=== PATIENT | female | born 1955 | race African-American/Black ===

== ENCOUNTER 2016-06-12 17:39 | Emergency (ER) | payer OTHER ==
[2016-06-12 17:46] VITALS: BP 153/93
--- NOTE | 2016-06-12 18:38 | EKG Report ---
Test Performed on : 06/12/2016 5:48:48 PM Test Reason : CHEST DISCOMFORT MOVEMENT COUGH HX Blood Pressure : / mmHG Vent. Rate : 095 BPM Atrial Rate : 095 BPM P-R Int : 138 ms QRS Dur : 082 ms QT Int : 348 ms P-R-T Axes : 050 -04 046 degrees QTc Int : 437 ms Normal sinus rhythm. Normal ECG When compared with ECG of 19-JAN-2013 03:49, No significant change was found Unconfirmed Result
--- NOTE | 2016-06-12 19:03 | PROVIDER DOCUMENTATION ---
HPI-General Adult - General Source: patient - History of Present Illness -Gen Adult Nature of Presenting Problems: 60 year old F presents to the ED with a cc of cough with production of green/ yellow/brown colored mucous, congestion, and sore throat with an onset of x1-2 weeks ago. PT states that she has been taking OTC medications with no relief. Pt states that over the past few days she has had body aches and a headache. Location of Pain/Injury: reports: generalized Pain Radiation: reports: no radiation Quality of Pain: reports: aching Severity: reports: mild Onset/Duration: reports: other (2 weeks) Timing: reports: still present Context/Activities at Onset: reports: none Associated Symptoms: reports: cough, EENT symptoms, headaches, muscle aches, sinus congestion/drainage Similar Symptoms Previously?: No Recently seen or treated by another doctor?: No <Darline Martin - Last Filed: 06/12/16 19:05> <Tha Hammond - Last Filed: 06/12/16 19:12> - General Chief Complaint: General Adult Stated Complaint: CHEST PAIN Time Seen by Provider: 06/12/16 18:57 Allergies/Adverse Reactions: Patient Allergies Allergy/AdvReac Type Severity Reaction Status Date / Time ramipril [From Altace] Allergy Severe WELPS Verified 08/05/15 18:03 morphine AdvReac HIVES Verified 06/12/16 17:47 Home Medications: Home Medication List Medication Instructions Recorded Confirmed Last Taken Type ATORVAstatin [Lipitor] 20 mg PO DAILY 06/14/15 07/28/15 07/28/15 History Amlodipine [Norvasc] 10 mg PO DAILY 06/14/15 07/28/15 07/28/15 History Aspirin 81 mg PO DAILY 06/14/15 07/28/15 07/28/15 History Duloxetine [Cymbalta] 60 mg PO DAILY 06/14/15 07/28/15 07/28/15 History Gabapentin 600 mg PO TID 06/14/15 07/28/15 07/28/15 History Lorazepam [Ativan] 0.5 mg PO BID PRN PRN 06/14/15 07/28/15 07/27/15 History Losartan [Cozaar] 100 mg PO DAILY 06/14/15 07/28/15 07/28/15 History Metformin [Glucophage] 500 mg PO WBREAKFAST 06/14/15 07/28/15 07/28/15 History Quetiapine [Seroquel] 50 mg PO QHS 06/14/15 07/28/15 07/27/15 History Trazodone [Desyrel] 50 mg PO QHS 06/14/15 07/28/15 07/27/15 History Hydrocodone/APAP 7.5 mg/325 mg 1 each PO Q6H PRN PRN #14 tablet 07/28/15 Unknown Rx [Olds-7.5] Methocarbamol [Robaxin] 500 mg PO BID #20 tablet 07/28/15 Unknown Rx Ondansetron [Zofran] 4 mg PO Q6H PRN PRN #20 tablet 07/28/15 Unknown Rx Cyclobenzaprine [Flexeril] 10 mg PO TID #30 tablet 08/05/15 Unknown Rx Amoxicillin [Amoxil] 500 mg PO BID #14 capsule 06/12/16 Unknown Rx Diphenhyramine/Al&mg Oh/Lido [Mbx 15 ml MT Q4-6H PRN PRN #1 bottle 06/12/16 Unknown Rx Solution] Fluticasone 50 Mcg Nasal [place] 1 spray TIMOTHY DAILY #1 bottle 06/12/16 Unknown Rx [Flonase] Guaifenesin/D-Methorphan Hb/PE 1 each PO Q6-8H PRN PRN #14 tablet 06/12/16 Unknown Rx [Deconex Dmx Tablet] Review of Systems - Adult - REVIEW OF SYSTEMS - ADULT Constitutional: denies: chills, fever Eyes: reports: no symptoms reported Ears, Nose, Mouth & Throat: reports: sinus problem, throat pain. denies: ear pain Cardiovascular: denies: chest pain, palpitations Respiratory: reports: cough. denies: shortness of breath Gastrointestinal: denies: abdominal pain, nausea, vomiting Genitourinary: reports: no symptoms reported Musculoskeletal: reports: muscle aches. denies: muscle weakness Integumentary: denies: skin sores/ulcer, skin thickening Neurological: reports: headache/migraines. denies: dizziness/vertigo Psychiatric: reports: no symptoms reported Endocrine: reports: no symptoms reported Hematologic/Lymphatic: reports: no symptoms reported Allergic/Immunologic: reports: no symptoms reported All Other Systems: Reviewed and Negative <Darline Martin - Last Filed: 06/12/16 19:05> Past History - Adult - PAST MEDICAL HISTORY-ADULT Review of Records: reports: Nursing Assessment Review, Medications Reviewed Major Childhood Illnesses: reports: denies history Cardiovascular: reports: CAD, HTN Respiratory: reports: denies history Gastrointestinal: reports: denies history Obstetrical/Gynecological: reports: denies history Genitourinary: reports: denies history Musculoskeletal: reports: chronic pain Neurological: reports: denies history Endocrine/Immune: reports: Diabetes Other Conditions: reports: denies history - PRIOR SURGERIES/PROCEDURES Surgical/Procedure History: reports: hernia repair - IMMUNIZATION STATUS Childhood Immunizations: See Nurse Assessment Flu Vaccine: See Nurse Assessment - FAMILY HISTORY Family History: reviewed, not pertinent - SOCIAL HISTORY Smoking: cigarettes, less than 1 pack/day Provider spent 3-5 mins advising pt. on dangers of tobacco.: Discussed manners to quit use, and f/u contacts for add'l counseling. Substance Use: none/never Alcohol Use Frequency: never <Darline Martin - Last Filed: 06/12/16 19:05> Physical Exam-General - PHYSICAL EXAM-ADULT Initial Vital Signs Reviewed: Yes - CONSTITUTIONAL General Appearance: appears well, alert, no apparent distress - HEAD, EARS, NOSE, MOUTH & THROAT HENMT: normocephalic/atraumatic, moist mucous membranes, pharyngeal erythema, frontal tenderness, maxillary tenderness, other (post nasal drip, bilateral swollen nares with nasal congestion) - RESPIRATORY Respiratory: chest non-tender, lungs clear, normal breath sounds - CARDIOVASCULAR Cardiovascular: normal peripheral pulses, regular rate, rhythm, no edema - GASTROINTESTINAL (ABDOMEN) Abdominal Exam: non tender, soft - MUSCULOSKELETAL Extremity: normal inspection - SKIN Integumentary: normal color, normal turgor, warm/dry - PSYCHIATRIC Psych/Mental Status: normal mood/affect, normal thought content, normal thought process, oriented x 3 <Darline Martin - Last Filed: 06/12/16 19:05> Progress - PLAN OF CARE/RESULTS Progress/Plan/Lab Results: plan of care: imaging, EKG, labs Orders Category Date Time Status CHEST-2 VIEWS [RAD] Stat Exams 06/12/16 17:[address] Stat Lab 06/12/16 17:47 Ordered EKG [EKG] Stat Ther 06/12/16 17:47 Draft Vital Signs - 24 hr 06/12/16 17:44 Temperature 98.9 F Pulse Rate 97 H Respiratory 19 Rate Blood Pressure 153/93 O2 Sat by Pulse 98 Oximetry Pt given results and will be d/c home w/ rx to follow up with PCP. Pt verbally understood instructions. PT remained clinically stable throughout the course of the ED stay and will return if symptoms worsen. - EKG 1 Time of EKG reading by physician:: 17:48 EKG Read and Signed by:: Tio Forman EKG Interpretation (*Must complete 3 of following elements*): Normal Rate: 95 Rhythm: NSR [place]: normal - XRAY 1 XRAY Study: Chest Impression: Normal XRAY Interpretation: NAD with no changes since 2016: Raj Jasmine <Darline Martin - Last Filed: 06/12/16 19:05> Departure <Darline Martin - Last Filed: 06/12/16 19:05> - Departure Time of Disposition Order: 19:09 Certified Medical Emergency: Urgent <Tha Hammond - Last Filed: 06/12/16 19:12> - Departure DIAGNOSIS: Sinusitis Qualifiers: Sinusitis location: pansinusitis Chronicity: acute Recurrence: non-recurrent Qualified Code(s): J01.40 - Acute pansinusitis, unspecified Pharyngitis Qualifiers: Pharyngitis/tonsillitis etiology: unspecified etiology Qualified Code(s): J02.9 - Acute pharyngitis, unspecified Disposition: HOME 01 Condition: Good Additional Instructions: Take medication as prescribed. Follow up with your primary care provider. Return to the ER for any new or worsening symptoms. ED Follow Up Instructions: You have been treated by a care provider in the Emergency Department. These instructions are being provided to you so you can have an understanding of how to care for yourself upon discharge. Upon discharge from the Emergency Department, you are responsible for making arrangements for follow-up care by a physician of your choice. Take all prescribed medications as directed. Return to the Emergency Department immediately for any new or worsening symptoms. You may call the Physician Referral phone number at [phone] to obtain a list of Physicians who are taking new patients. Prescriptions: Amoxicillin [Amoxil] 500 mg PO BID #14 capsule Guaifenesin/D-Methorphan Hb/PE [Deconex Dmx Tablet] 1 each PO Q6-8H PRN PRN #14 tablet PRN Reason: Cough and congestion Fluticasone 50 Mcg Nasal [place] [Flonase] 1 spray TIMOTHY DAILY #1 bottle Diphenhyramine/Al&mg Oh/Lido [Mbx Solution] 15 ml MT Q4-6H PRN PRN #1 bottle PRN Reason: Sore throat Referrals: Jamey Cast MD [Primary Care Provider] - Attestation - Scribe Verification/Attestation Scribe:: Darline Martin Acting as Scribe for:: Tha Hammond Scribe documention review:: This chart was documented by a scribe and accurately reflects the service the provider performed and the decisions made by the provider. <Darline Martin - Last Filed: 06/12/16 19:05> - Physician/ DAMEON Attestation Patient care was provided by Advanced Practice Provider:: Yes Advanced Practice Provider:: Tha Hammond Advanced Practice Provider documentation review:: The Mid-level provider documentation, treatment plan and medical decision making was reviewed by the physician who agrees with all treatment and medical decision making by the MLP. <Tha Hammond - Last Filed: 06/12/16 19:12> Physician Attestation - Physician Attestation I, the provider, attest to the following statement:: Tha Hammond Physician documentation Attestation:: This documentation recorded by the scribe accurately reflects the service I personally performed and the decisions made by me. <Darline Martin - Last Filed: 06/12/16 19:05>
--- NOTE | 2016-06-13 09:35 | Diag Imaging Result Document ---
PROCEDURE NAME: CHEST-2 VIEWS - 06/12/2016 PA AND LATERAL RADIOGRAPH OF THE CHEST: COMPARISON: 07/19/2015. FINDINGS: The lungs are grossly clear. There is no discrete pleural fluid collection or evidence of pneumothorax. The cardiomediastinal silhouette and upper airway are grossly unremarkable. IMPRESSION: No evidence of acute chest pathology.
== END 2016-06-12 19:20 | disposition home or self-care (01) ==
LOC: P.ED 17:39
DX: J01.40 Acute pansinusitis, unspecified (principal); J02.9 Acute pharyngitis, unspecified; R05 Cough; R09.81 Nasal congestion; M79.1 Myalgia; R51 Headache; I25.10 Atherosclerotic heart disease of native coronary artery without angina pectoris; I10 Essential (primary) hypertension; Z79.899 Other long term (current) drug therapy; G89.29 Other chronic pain; E11.9 Type 2 diabetes mellitus without complications; F17.210 Nicotine dependence, cigarettes, uncomplicated; Z71.6 Tobacco abuse counseling; Z79.82 Long term (current) use of aspirin
CPT/HCPCS: 71020; 87804; 93005